=== PATIENT | female | born 1950 | race Caucasian/White ===

== ENCOUNTER → 2019-02-26 19:18 | Outpatient (CLI) | payer MEDICARE, OTHER, SELFPAY ==
--- NOTE | 2019-02-26 | DI.MRI.S_ITS ---
PROCEDURE: MR LUMBAR SPINE WO CON INDICATIONS: OTHER SPONDYLOSIS WITH RADICULOPATHY, LUMBAR REGION TECHNIQUE: Noncontrast sagittal T1 spin echo and T2 fast echo, sagittal STIR, axial T1 and T2 fast spin echo through the lumbar spine. In cases with scoliosis, additional coronal T2 fast spin echo may be performed. COMPARISON: [facility], MR, L-SPINE WITHOUT CONTRAST, 09/15/2015, 10:55. FINDINGS: Image quality: Excellent. Alignment and Curvature: The same numbering system which was used on the prior examination report will be used on the current examination report. There is loss of normal lumbar lordosis. There is mild focal kyphosis at L2-L3. Bone Marrow: Marrow is of normal overall signal. No acute vertebral body compression fractures. Minimal reactive signal within the endplates adjacent to the L2-L3 and L3-L4 intervertebral discs. Spinal Cord: Conus medullaris terminates at the mid L2 level. Visualized cord demonstrates normal signal and size. Paraspinous Soft Tissues: No paravertebral masses. L1-L2: Normal appearance. L2-L3: Moderate disc height loss and desiccation. Mild diffuse disc bulge. Mild epidural lipomatosis. Mild canal stenosis. No foraminal stenosis. No change. L3-L4: Moderate disc height loss and desiccation. Mild diffuse disc bulge. Mild facet and ligamentum flavum hypertrophy. Mild epidural lipomatosis. Mild canal stenosis. Mild bilateral foraminal stenosis. No change. L4-L5: Moderate disc desiccation. Mild disc height loss. Mild diffuse disc bulge with small superimposed left posterolateral protrusion and annular tear. Mild facet and ligamentum flavum hypertrophy. Mild canal stenosis. Mild left foraminal stenosis. No right foraminal stenosis. No change. L5-S1: Mild bilateral facet hypertrophy. No significant canal, nor foraminal stenosis. IMPRESSION: 1. Multilevel degenerative disc and facet disease, as well as ligamentum flavum hypertrophy and epidural lipomatosis. 2. Mild multilevel canal and foraminal stenoses. No neural impingement. Dictated by: Jacquelin Kirby M.D. on 02/27/2019 at 10:27 Approved by: Jacquelin Kirby M.D. on 02/27/2019 at 10:30
== END ==
PROVIDERS: PCP Specialist; Visit Provider Physician Assistant Medical
DX: M47.26 Other spondylosis with radiculopathy, lumbar region (principal); M51.16 Intervertebral disc disorders with radiculopathy, lumbar region; E88.2 Lipomatosis, not elsewhere classified
CPT/HCPCS: 72148

== ENCOUNTER → 2025-02-05 | Outpatient (CLI) | payer MEDICARE, OTHER, SELFPAY ==
--- NOTE | 2025-02-05 16:35 | DI.MRI.S_ITS ---
PROCEDURE: MR LUMBAR SPINE WO CON INDICATIONS: STENOSIS TECHNIQUE: Noncontrast sagittal T1 spin echo and T2 fast echo, sagittal STIR, and T2 fast spin echo through the lumbar spine. In cases with scoliosis, additional coronal T2 fast spin echo may be performed. COMPARISON: [facility], MR, MR LUMBAR SPINE WO CON, 02/26/2019, 19:47. FINDINGS: Image quality: Excellent. Alignment and Curvature: There is trace retrolisthesis of L2 on L3, L3 on L4. Bone Marrow: Marrow is of normal overall signal. No acute vertebral body compression fractures. Spinal Cord: Conus medullaris terminates at the L1 level. Visualized cord demonstrates normal signal and size. Paraspinous Soft Tissues: No paravertebral masses. T12-L1: No disc bulge, spinal stenosis or foraminal narrowing. No interval change. L1-L2: No disc bulge, spinal stenosis or foraminal narrowing. No interval change. L2-L3: Mild disc bulge with mild spinal stenosis. No foraminal narrowing. No interval change. Mild facet and ligamentum flavum hypertrophy. L3-L4: Mild disc bulge with mild spinal stenosis. Minimal bilateral foraminal narrowing with facet and ligamentum flavum hypertrophy. No interval change. Epidural lipomatosis is present. L4-L5: Mild disc bulge with left posterior lateral protrusion, unchanged. Mild spinal stenosis. Mild left foraminal narrowing with facet and ligamentum flavum hypertrophy. No significant interval progression. L5-S1: Mild disc bulge without spinal stenosis. Minimal interval left foraminal narrowing. Facet hypertrophy is present. IMPRESSION: Multilevel degenerative changes with minimal areas of interval progression as above. Dictated by: Dasha Millan M.D. on 02/06/2025 at 11:33 Approved by: Dasha Millan M.D. on 02/06/2025 at 11:47
== END ==
PROVIDERS: PCP Student in an Organized Health Care Education/Training Program; Referring Provider Student in an Organized Health Care Education/Training Program; Visit Provider Student in an Organized Health Care Education/Training Program
DX: M48.061 Spinal stenosis, lumbar region without neurogenic claudication (principal); M47.816 Spondylosis without myelopathy or radiculopathy, lumbar region; M47.817 Spondylosis without myelopathy or radiculopathy, lumbosacral region
CPT/HCPCS: 72148